=== PATIENT | male | born 1995 | race Caucasian/White ===

== ENCOUNTER 2019-10-29 08:43 | Emergency (ER) | payer OTHER ==
[~2019-10-29] VITALS: Ht 170.2 cm; Wt 113.4 kg
--- NOTE | 2019-10-29 08:50 | NUR ---
PATIENT TO ER #3, STAT EKG, MONITOR, SAO2 AND ABP
--- NOTE | 2019-10-29 09:00 | NUR ---
Patient came to the ER with complaint of chest wall pain when coughing. Patient advised that he has been coughing since last night and during coughs, he felt chest pain. Patient advised that when he experiences chest pain, it is associated with sob and light headness. Patient is AOx4 SPO2 97% with BP 174/94. MD informed. Patient not presenting any signs of acute distress.
[2019-10-29 09:01] VITALS: BP_SYST 185
--- NOTE | 2019-10-29 09:10 | NUR ---
TRISTAN Nair at bedside examining patient.
[2019-10-29] MEDS ORDERED: cloNIDine HCL 0.1 MG TABLET PO ONE (09:15)
[2019-10-29] MEDS ORDERED: IPRATROPIUM/ALBUTEROL SULFATE 3 ML AMPUL.NEB (DUONEB) INH ONE (09:15)
[2019-10-29] MEDS ORDERED: OSELTAMIVIR PHOSPHATE 75 MG CAPSULE PO ONE (10:15)
--- NOTE | 2019-10-29 10:30 | NUR ---
Patient given written and verbal discharge instructions and verbalizes understanding. ER MD discussed with patient the results and treatment provided. Patient in stable condition. ID arm band removed. Rx of Tamiflu and Promethazine Hydrochloride/Codeine Phosphate given. Patient educated on pain management and to follow up with PMD. Pain Scale 0/10. Opportunity for questions provided and answered. Medication side effect fact sheet provided.
[2019-10-29 10:43] VITALS: BP_SYST 144
== END 2019-10-29 10:43 | disposition home or self-care (01) ==
LOC: SED 08:43
DX: J10.1 Influenza due to other identified influenza virus with other respiratory manifestations (principal); J18.9 Pneumonia, unspecified organism; E78.00 Pure hypercholesterolemia, unspecified
CPT/HCPCS: 71046; 86710; 93005; 94640; 99285; G9035; 36415

== ENCOUNTER 2019-10-31 03:05 | Emergency (ER) | payer OTHER ==
[~2019-10-31] VITALS: Ht 170.2 cm; Wt 113.4 kg
[2019-10-31 03:10] VITALS: BP_SYST 144
--- NOTE | 2019-10-31 03:10 | NUR ---
Pt placed to ER bed 03, to gown, to rn cardiac cath. Pt c/o generalized abdominal pain with vomiting and diarrhea, and painful cough x 2 days. Pt also states that he has been coughing up blood. Pt was seen 2 days ago for same s/s and tested positive for Flu type A. Respirations even and non-labored. Family member at bedside.
--- NOTE | 2019-10-31 03:48 | NUR ---
Dr. Shea at bedside.
[2019-10-31] MEDS ORDERED: cloNIDine HCL 0.1 MG TABLET PO ONE (04:30)
[2019-10-31] MEDS ORDERED: AZITHROMYCIN 250 MG TABLET PO ONE (04:45)
--- NOTE | 2019-10-31 05:00 | NUR ---
B/P 147/109, P 88. Dr. Shea notified. Pt denies c/o C/P or SOB.
[2019-10-31 05:03] LABS: BASOPHILS % (AUTO) 0.3 % (0.0-2.0); EOSINOPHILS # (AUTO) 0.4 K/uL (0.0-0.4); EOSINOPHILS % (AUTO) 4.6 % (0.0-4.0); HEMATOCRIT 43.4 % (36-54); HEMOGLOBIN 14.6 g/dL (14.0-18.0); LYMPHOCYTES # (AUTO) 3.2 K/uL (1.0-5.5); LYMPHOCYTES % (AUTO) 35.7 % (20.5-51.5); MEAN CORPUSCULAR HEMOGLOBIN 28 pg (27-31); MEAN CORPUSCULAR HGB CONC 34 % (32-36); MEAN CORPUSCULAR VOLUME 84 fL (79.0-98.0); MONOCYTES # (AUTO) 1.3 K/uL (0.0-1.0); MONOCYTES % (AUTO) 15.1 % (1.7-9.3); NEUTROPHILS % (AUTO) 44.3 % (40.0-70.0); PLATELET COUNT (AUTO) 190 K/uL (130-430); RED BLOOD CELL COUNT(AUTO) 5.14 MIL/uL (4.2-6.2); RED CELL DISTRIBUTION WIDTH 14.2 % (9.0-15.0); WHITE BLOOD COUNT (AUTO) 8.9 K/uL (4.8-10.8)
[2019-10-31 05:33] VITALS: BP_SYST 160
--- NOTE | 2019-10-31 05:33 | NUR ---
Patient given written and verbal discharge instructions and verbalizes understanding. ER MD discussed with patient the results and treatment provided. Patient in stable condition. ID arm band removed. Rx of Zithromax given. Patient educated on pain management and to follow up with PMD. Pain Scale 2/10. Opportunity for questions provided and answered. Medication side effect fact sheet provided.
== END 2019-10-31 05:33 | disposition home or self-care (01) ==
LOC: SED 03:05
DX: J18.9 Pneumonia, unspecified organism (principal); J11.1 Influenza due to unidentified influenza virus with other respiratory manifestations
CPT/HCPCS: 36415; 71045; 85025; 99284; Q0144